=== PATIENT | male | born 1950 | race Caucasian/White ===

== ENCOUNTER 2020-04-28 10:58 | Outpatient (RCR) | payer MEDICARE, SELFPAY ==
[2015-05-13 10:57] VITALS: BMI 33.7
== END 2020-04-28 23:59 ==
LOC: IMMUN 10:58
PROVIDERS: PCP Family Medicine; Referring Provider Family Medicine; Visit Provider Family Medicine
DX: Z23 Encounter for immunization (principal)
CPT/HCPCS: 0011A; 0012A; 91301